=== PATIENT | male | born 1960 | race Caucasian/White ===

== ENCOUNTER 2017-10-21 17:26 | Emergency (ER) | payer OTHER ==
[~2017-10-21] VITALS: Ht 172.7 cm; Wt 90.7 kg
[2017-10-21 19:33] VITALS: BP 111/60
== END 2017-10-21 19:10 | disposition home or self-care (01) ==
LOC: ED 17:26
DX: R06.00 Dyspnea, unspecified (principal); K13.0 Diseases of lips; T78.40XA Allergy, unspecified, initial encounter; F17.200 Nicotine dependence, unspecified, uncomplicated; Z91.030 Bee allergy status; Y92.9 Unspecified place or not applicable